=== PATIENT | female | born 2005 | race Caucasian/White ===

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

== ENCOUNTER 2025-02-18 19:27 | Emergency (ER) | payer OTHER, SELFPAY ==
[2025-02-18 19:40] VITALS: BP 125/85; PULSE 97; RESP 17; TEMP 36.8; O2SAT 100; BMI 16.4
--- NOTE | 2025-02-18 20:43 | PC.NURSE ---
pt called from waiting room and said her LEFT ear hurts more. this nurse offered tylenol or ibu. pt declined. asked how long the wait was to see a doctor. This nurse told her there is not time she could give them, the doctor is doing the best she could to see people quickly. The patient and her friend decided they are going to go somewhere else or just go home. the pt expressed she understands it is her choice and said no hard feelings and left [facility].
== END 2025-02-18 20:47 | disposition left against medical advice (07) ==
PROVIDERS: Emergency Provider Emergency Medicine; PCP Family Medicine
DX: H92.02 Otalgia, left ear (principal)
CPT/HCPCS: 99281